=== PATIENT | female | born 1970 | race Caucasian/White ===

== ENCOUNTER 2016-03-24 12:05 | Emergency (ER) | payer BC ==
[2016-03-24 12:17] VITALS: BP 121/74
--- OUTSIDE RECORDS SUMMARY | 2016-03-24 12:56 | XMS REPORT | Continuity of Care Document ---
:1970 Author Organization [facility] ([facility]) Address [address] [place] [address] Phone [phone] Care Team Providers Name Role Phone Tamanna Michel Primary Care Provider [phone] Source Comments This disclosure is being made pursuant to the Care Everywhere program, applicable federal and state laws, and may not contain all informaitonavailable regarding this patient.[facility] ([facility]) Active Allergies and Adverse Reactions No Known Allergies Current Medications Prescription Sig. Disp. Refills Start Date End Date Status LISINOPRIL 20 mg tablet 0 09/03/2014 Active Active Problems Problem Noted Date Essential hypertension, benign 09/18/2014 Tobacco use disorder 09/18/2014 Social History Tobacco Use Types Packs/Day Years Used Date Current Every Day Smoker Cigarettes 0.5 26 Smokeless Tobacco: Never Used Tobacco Cessation:Ready to Quit: No; Counseling Given: No Comments: Alcohol Use Drinks/Week oz/Week Comments Yes 12 Cans of beer 7.2 Last Filed Vital Signs Vital Sign Reading Time Taken Blood Pressure 126/80 11/06/2014 1:02 PM CDT Pulse 68 11/06/2014 1:02 PM CDT Temperature - - Respiratory Rate - - Height 1.676 m (5' 6") 11/06/2014 1:02 PM CDT Weight 74.39 kg (164 lb) 11/06/2014 1:02 PM CDT Body Mass Index 26.48 11/06/2014 1:02 PM CDT Oxygen Saturation - - Plan of Care Health Maintenance Due Date Last Done Comments Hepatitis B Vaccine (1 of 3 - Primary Series) 1970 Tdap Vaccine 02/14/1979 Lipid Disorder Screening 02/14/1986 MMR Vaccine 02/14/1986 Td Vaccine 02/14/1986 Pneumococcal Vaccine (1 of 1 - PPSV23) 02/14/1987 Cervical Cancer Screening 02/14/1998 Mammogram 2008 Influenza Vaccine: Seasonal (#1) 09/15/2015 Results from Last 3 Months Not on file
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
== END 2016-03-24 12:57 | disposition home or self-care (01) ==
LOC: ER 12:05
DX: M54.6 Pain in thoracic spine (principal); Z87.891 Personal history of nicotine dependence; I10 Essential (primary) hypertension; X50.9XXA Other and unspecified overexertion or strenuous movements or postures, initial encounter